=== PATIENT | female | born 1980 ===

== ENCOUNTER 2022-04-18 13:58 | Emergency (ER) | payer OTHER ==
[~2022-04-18] VITALS: Ht 167.6 cm; Wt 163.3 kg
[2022-04-18] MEDS ORDERED: GLUMETZA500 MG PO (14:11)
[2022-04-18] MEDS ORDERED: COZAAR25 MG PO (14:13)
[2022-04-18] MEDS ORDERED: COZAAR100 MG PO (14:14)
== END 2022-04-18 20:19 | disposition home or self-care (01) ==
LOC: ER 13:58
DX: R10.32 Left lower quadrant pain (principal); I10 Essential (primary) hypertension; Z88.0 Allergy status to penicillin; E11.9 Type 2 diabetes mellitus without complications; Z79.84 Long term (current) use of oral hypoglycemic drugs